=== PATIENT | female | born 1995 | race Caucasian/White ===

== ENCOUNTER → 2019-10-19 | Outpatient (CLI) | payer OTHER, SELFPAY ==
[2014-06-30 08:10] VITALS: BMI 22.6
== END | disposition home or self-care (01) ==
LOC: LABSPEC 16:06
PROVIDERS: Referring Provider Family Medicine; Visit Provider Family Medicine
DX: N39.0 Urinary tract infection, site not specified (principal)
CPT/HCPCS: 87077; 87086; 87088; 87186

== ENCOUNTER → 2020-03-14 16:53 | Outpatient (CLI) | payer OTHER, SELFPAY ==
[2014-06-30 08:10] VITALS: BMI 22.6
== END ==
PROVIDERS: PCP Family Medicine; Referring Provider Family Medicine; Visit Provider Family Medicine
DX: B34.9 Viral infection, unspecified (principal)
CPT/HCPCS: 87633; 87635; U0003

== ENCOUNTER 2021-04-14 16:37 | Emergency (ER) | payer OTHER, SELFPAY ==
[2021-04-14 16:38] VITALS: BP 115/63; PULSE 81; RESP 16; TEMP 36.2; O2SAT 99; BMI 25.8
--- NOTE | 2021-04-14 17:03 | EDS_ITS ---
HPI History of Present Illness Chief Complaint: Abd Pain Informant: patient Onset/Context/Timing Onset: Days (4 days) Context: Gradual Onset Timing: Waxes and wanes Current Severity: Mild Maximum Severity: Moderate Narrative Narrative: Patient presents with pain to her low back and right lower quadrant of her abdomen. She states pain also shoot down her right leg to her knee. It is not necessarily positional. She denies dysuria but has noted slight increased urinary frequency. No history of ovarian cyst. PFSH PFSH Medical History no medical history no medical history Home Medications naproxen [Naprosyn] 500 mg PO BID PRN #20 tab 04/14/21 [Rx Last Taken Unknown] Allergy/AdvReac Type Severity Reaction Status Date / Time No Known Allergies Allergy Verified 04/14/21 16:40 Social History Smoking Status: Never smoker ROS ROS ED Constitutional Constitutional ED: Denies chills or fever(s) Eyes Eyes: Denies change in vision ENT ENT ED: Denies sore throat Cardiovascular Cardiovascular: Denies chest pain Respiratory/Chest Respiratory/Chest: Denies cough or dyspnea Gastrointestinal Gastrointestinal: Reports abdominal pain; Denies diarrhea, nausea or vomiting Genitourinary Genitourinary ED: Denies dysuria Musculoskeletal Musculoskeletal: Reports back pain Integumentary Denies rash Neurologic Neurologic: Denies headache(s), paresthesias or weakness Allergic/Immunologic Allergic/Immunologic ED: Denies urticaria EXAM Physical Exam Const Vital Signs: 04/14/21 16:38 Temperature 97.1 F L Temperature Source Temporal Pulse Rate 81 Respiratory Rate 16 Blood Pressure 115/63 Blood Pressure Mean 80 Pulse Ox 99 Oxygen Delivery Method Room Air Positive well nourished and well developed General Appearance ED: well developed HEENT Reports moist mucous membranes Eyes PERRL and EOMs intact bilaterally Chest Wall inspection of chest normal Resp normal respiratory effort and clear to auscultation bilaterally Cardio regular rate and regular rhythm GI normal to inspection, nondistended, normoactive bowel sounds and non-tender Palpation: soft Back/Spine no CVA tenderness Back/Spine Narrative: No midline thoracic or lumbar tenderness. No significant tenderness in the lumbar paraspinal muscles. Neuro oriented x3 Sensorium / Orientation: alert Psych mental status grossly normal Skin no rashes or lesions noted MDM MDM MDM Narrative Medical decision making narrative: Urinalysis and urine test obtained. Lab Data Attestation: I reviewed the patient's lab results. Labs: Laboratory Results - last 24 hr 04/14/21 17:20 Urine Color Yellow Urine Clarity Clear Urine pH 7.0 Ur Specific [place] 1.015 Urine Protein 15 H Urine Glucose (UA) Normal Urine Ketones Negative Urine Occult Blood 10 H Urine Nitrite Negative Urine Bilirubin Negative Urine Urobilinogen Normal Ur Leukocyte Esterase Negative Urine RBC 0 SEEN Urine WBC 0 SEEN Ur Squamous Epith Cells 0 SEEN Urine Bacteria 0 SEEN Urine Mucus 0 SEEN Urine Test Negative Treatment and Re-Evaluation Comments:: No acute infection noted on urinalysis. Urine test is negative. Patient does not have reproducible abdominal pain. I do not believe she has appendicitis or ovarian cyst/torsion. She does have pain in her right lower back and does have pain that radiates down her leg. I think this is more likely neurovascular/musculoskeletal pain. She will be treated with a course of naproxen, first dose given here. Discharge Plan Triage Chief Complaint: Abd Pain ED Provider: Becky Power Dx/Rx/DC Orders Clinical Impression: Back pain Instructions: ED Back Pain (Acute or Chronic) Prescriptions: New naproxen [Naprosyn] 500 mg tablet 500 mg PO BID PRN (Reason: pain) Qty: 20 RF: 0 Primary Care Provider: Guero Samson Referrals: Guero Samson MD [Primary Care Provider] - 1 Week if not improving Disposition Disposition: Home, Self Care
[2021-04-14 17:26] LABS: Bacteria 0 SEEN /hpf (None Seen); Mucous, Urine 0 SEEN /hpf (<or=2+); Red Blood Cells-Urine 0 SEEN /hpf (0-5); Squamous Epithelial Cells - UA 0 SEEN /hpf (5-10); White Blood Cells 0 SEEN /hpf (0-5)
[2021-04-14 17:37] LABS: Color, Urine Yellow (Yellow); Glucose, Dipstick Normal (Normal); Ketone-Dipstick Negative (Negative); Leukocyte Esterase-Dipstick Negative /ul (Negative); Nitrite-Dipstick Negative (Negative); Occult Blood-Urine 10 /ul (Negative); Protein-Dipstick 15 mg/dl (Negative); Specific Gravity, Urine 1.015 (1.002-1.030); Urine Bilirubin Dipstick Negative (Negative); Urine Clarity Clear (Clear); Urine Urobilinogen Normal (Normal)
[2021-04-14 17:43] LABS: Internal QC Validated? YES +Cl - CLEAR BKGD; Pregnancy, Urine Negative Negative
[2021-04-14] MEDS: Naproxen 500 MG Tablet PO (19:02)
== END 2021-04-14 19:04 | disposition home or self-care (01) ==
PROVIDERS: Emergency Provider Emergency Medicine; PCP Family Medicine
DX: M54.50 Low back pain, unspecified (principal); R10.31 Right lower quadrant pain; R35.0 Frequency of micturition
CPT/HCPCS: 81001; 81025; 99283

== ENCOUNTER 2025-03-19 11:09 | Emergency (ER) | payer OTHER, SELFPAY ==
[2025-03-19 11:10] VITALS: BP 122/89; PULSE 82; RESP 14; TEMP 36.6; O2SAT 98; BMI 28.9
--- NOTE | 2025-03-19 11:20 | US_ITS ---
PROCEDURE: TRANSVAGINAL NON- 03/19/2025 REASON FOR EXAM: VAGINAL BLEEDING TECHNIQUE: Procedure Code: USTVAG Modality: US Procedure: TRANSVAGINAL NON- COMPARISON: None FINDINGS: Measurements: Uterus: 7.7 x 4.6 x 3.3 cm Endometrial Thickness: 7 mm Right ovary measures 3.6 x 2.9 x 2.9 cm no suspicious adnexal mass, normal color flow Left ovary measures 3.0 x 2.3 x 2.5 cm no suspicious adnexal mass, normal color flow US/Transvaginal Non- IMPRESSION: No suspicious sonographic findings Reading Location: [id number]
--- NOTE | 2025-03-19 11:21 | EDS_ITS ---
HPI HPI - Female History of Present Illness Chief Complaint: Vag Bleeding Detail of Chief Complaint: Vaginal bleeding Informant: patient Narrative Narrative: Patient presents with vaginal bleeding that started 65 days ago. Occasionally will stop for day or so. She has not had issues like this before. She denies abdominal pain. She has never been . She does not use control. She describes some mild generalized weakness but no lightheadedness or dizziness. She denies urinary symptoms. PFSH PFS Medical History Non-smoker Home Medications Medication Instructions Recorded Last Taken Type NK 08/05/24 Unknown History Allergy/AdvReac Type Severity Reaction Status Date / Time No Known Allergies Allergy Verified 03/19/25 11:09 Family History (Updated 08/05/24 @ 10:03 by Jazz Mckeon MA) Other Cancer Social History (Updated 08/05/24 @ 10:03 by Jazz Mckeon MA) Smoking Status: Never smoker alcohol intake: never ROS ROS ED Review of Systems ROS Unobtainable: other Constitutional Constitutional ED: Reports lethargy; Denies chills, fever(s), sweats or weight loss Eyes Eyes: Denies blurry vision, change in vision or diplopia ENT ENT ED: Denies rhinorrhea or sore throat Cardiovascular Cardiovascular: Denies chest pain, orthopnea or racing heartbeat Respiratory/Chest Respiratory/Chest: Denies cough, dyspnea, dyspnea on exertion, orthopnea or sputum Gastrointestinal Gastrointestinal: Denies abdominal pain, diarrhea, nausea or vomiting Genitourinary Genitourinary ED: Reports other Details: Vaginal bleeding ; Denies dysuria, hematuria or urinary frequency Musculoskeletal Musculoskeletal: Denies arthralgias, back pain, myalgias or neck pain Integumentary Denies abscess, Abrasions or rash Neurologic Neurologic: Denies headache(s) or weakness Psychiatric Psychiatric: Denies anxiety, depression or suicidal thoughts Endocrine Endocrinology: Denies polydipsia, polyphagia or polyuria Hematologic/Lymphatic Hematologic/Lymphatic: Denies easy bleeding, easy bruising or lymphadenopathy Allergic/Immunologic Allergic/Immunologic ED: Denies mouth swelling, tongue swelling or urticaria EXAM Physical Exam Const Vital Signs: 03/19/25 11:10 03/19/25 11:26 03/19/25 13:09 Temperature 98 F Temperature Source Temporal Pulse Rate 82 80 Pulse Rate [Lying] 78 Pulse Rate [Sitting (for 1 minute prior to obtaining)] 83 Pulse Rate [Standing (for 1 minute prior to obtaining)] 92 Respiratory Rate 14 Blood Pressure 122/89 H 112/80 Blood Pressure [Lying] 120/77 Blood Pressure [Sitting (for 1 minute prior to obtaining)] 118/88 H Blood Pressure [Standing (for 1 minute prior to obtaining)] 113/92 H Blood Pressure Mean 100 90 Blood Pressure Mean [Lying] 91 Blood Pressure Mean [Sitting (for 1 minute prior to obtaining)] 98 Blood Pressure Mean [Standing (for 1 minute prior to obtaining)] 99 Pulse Ox 98 99 Oxygen Delivery Method Room Air Positive well nourished and well developed General Appearance ED: well developed and NAD HEENT Reports TM's clear and moist mucous membranes normocephalic and atraumatic; Negative for trauma or tenderness Tympanic Membrane ED: Yes TM's clear Eyes PERRL and EOMs intact bilaterally General Eye ED: Negative for pale conjunctiva or scleral icterus Neck no lymphadenopathy, supple and no JVD General: Negative for tenderness Chest Wall inspection of chest normal and palpation of chest normal Chest: Negative for tenderness Resp normal respiratory effort and clear to auscultation bilaterally Effort and Inspection: Negative for respiratory distress or pain with movement Auscultation: Negative for rhonchi, wheezes or diminished lung sounds Cardio regular rate, regular rhythm, S1 normal heart sound, S2 normal heart sound and no murmurs Peripheral Pulses: pulses 2+ throughout GI normal to inspection, nondistended, normoactive bowel sounds, soft to palpation, non-tender, non-distended and no masses Back/Spine no CVA tenderness and no thoracic nor lumbar tenderness Extremity normal to inspection General Extremety ED: Negative for edema General Extremity: Negative for edema Neuro oriented x3, CN's II-XII intact bilaterally, no sensory deficits noted and gait normal Sensorium / Orientation: awake, alert, oriented to person, oriented to place and oriented to time Motor Exam: strength 5/5 throughout and strength abnormal Psych mental status grossly normal Skin no rashes or lesions noted and no wounds MDM MDM MDM Narrative Medical decision making narrative: Patient presents with vaginal bleeding x 65 days. Clinically she looks well. IV line established. Type and screen ordered. CBC with differential showed a white count of 8.6 with hemoglobin 13.7 and platelet count 320. hCG was negative. Pelvic ultrasound showed no acute abnormalities. Will discuss case with RESEARCH ADMINISTRATOR on-call. Spoke with Dr. Hayde Miller who recommended just outpatient follow-up and did not think patient acutely needed any type of hormone therapy. Patient comfortable with plan. Lab Data Attestation: I reviewed the patient's lab results. Labs: Laboratory Results - last 24 hr 03/19/25 11:30 WBC 8.6 RBC 4.77 Hgb 13.7 Hct 41.3 MCV 86.6 MCH 28.7 MCHC 33.2 RDW Std Deviation 40.1 RDW Coeff of [place] 12.7 Plt Count 320 MPV 10.0 Immature Gran % (Auto) 0.500 Neut % (Auto) 45.4 L Lymph % (Auto) 44.6 H [place] % (Auto) 7.4 Eos % (Auto) 1.3 Baso % (Auto) 0.8 Absolute Neuts (auto) 3.9 Absolute Lymphs (auto) 3.84 Nucleated RBC % 0 Serum , Qual NEGATIVE Blood Type O POSITIVE Antibody Screen NEGATIVE Radiography Diagnostic Testing: Clinical Impression(s) from Imaging Studies Transvaginal US 03/19/25 11:20 IMPRESSION: No suspicious sonographic findings Reading Location: [facility] Discharge Plan Triage Chief Complaint: Vag Bleeding ED Provider: Matt Palomares Dx/Rx/DC Orders Clinical Impression: Dysfunctional uterine bleeding Instructions: ED Dysfunctional Uterine Bleeding Prescriptions: No Action NK Primary Care Provider: Care Physician,No Primary Referrals: Guero Samson MD [Med Staff - Product Support Representative, Family Practice] Laura Miller MD [Med Staff - Active Staff, Obstetrics-Gynecology (OBGYN)] - 5-7 Days Print Language: [place] Disposition Disposition: Home, Self Care
[2025-03-19 11:26] VITALS: BP 113/92; BP 118/88; BP 120/77; PULSE 78; PULSE 83; PULSE 92
[2025-03-19 11:41] LABS: Hematocrit 41.3 % (37-47); Hemoglobin 13.7 g/dL (12.0-15.0); Immature Granulocytes Count 0.040 X10^3/uL (0.0-0.0); Mean Corp Hgb Conc 33.2 g/dL (32-36); Mean Corpuscular Volume 86.6 fL (81-99); Mean Platelet Vol. 10.0 fl (6.2-12.0); NRBC Flagged by Analyzer 0 % (0-5); Platelet Count 320 K/mm3 (150-450); RBC Distribution Width CV 12.7 % (11.6-14.6); RBC Distribution Width SD 40.1 fl (35.1-43.9); Red Blood Count 4.77 M/mm3 (4.2-5.4); White Blood Count 8.6 K/mm3 (4.4-11.0)
--- OUTSIDE RECORDS SUMMARY | 2025-03-19 11:47 | XMS RPT_ITS | CCD ---
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 Name Role Phone Unavailable Primary Care Provider UnavailMir Heck Attending Unavailable Guero Samson Referring Unavailable Guero Samson Primary Care Unavailable Guero Samson Referring Unavailable Guero Samson Primary Care Unavailable Mir Berg Attending Unavailable Problems Problem Classification Problem Date Documented Da te Episodic/Chronic Menstrual disorders (1 source) Irregular periods; Translations: [Irregular menstruation, unspecified] Chronic Results Test Name Value Interpretation Reference Range [facility] it Office Visit Reporton 2024 Office Visit Report [facility] [address] [place] [address] OFFICE VISIT Date of Service: 08/05/24 MR#: [id number] Acct: [id number] Patient: NIYA PIERCE Rep #: [id number] : 1995 Provider: FLOYD Corley Age/Sex: 29/F Location: [facility] Status: Signed Intake Vital Signs 08/04/24 17:53 Height 5 ft 6 in Intake Visit Reasons: PE NON DOT DRUG SCREEN/[facility] Allergies No Known Allergies Allergy (Verified 08/05/24 10:02) Office Procedures [facility] Billing Sheet Testing Pre-Employment Drug Screen [facility]: Yes Pre-Employment PE: Yes 08/06/24 1740 Date Mir BARRIENTOS Cosigner Signature: Date (if applicable) CC: Normal [facility] Urgent Care Visit Reporton 0 08-05-2024 Urgent Care Visit Report [facility] [address] , [address] [place] [address] OFFICE VISIT Date of Service: 08/05/24 MR#: [id number] Acct: [id number] Name: NIYA PIERCE Rep #: [id number] : 1995 Provider: FLOYD Corley Age/Sex: 29/F Location: [facility] Status: Signed Intake Vital Signs 04/14/21 16:38 08/04/24 17:53 Height 5 ft 6 in 5 ft 6 in Intake Visit Reasons: PE NON DOT PHYSICAL/[facility] Accompanied by: Self Allergies No Known Allergies Allergy (Verified 08/05/24 10:02) Medications ???Medication ???Instructions ???Recorded ???Confirmed ???Type NK 08/05/24 08/05/24 History Nurse's Note: Patient here for a pre-employment physical and Drug screen. PFSH Family History (Updated 08/05/24 @ 10:03 by Jazz Mckeon MA) Other Cancer Social History (Updated 08/05/24 @ 10:03 by Jazz Mckeon MA) Smoking Status: Never smoker alcohol intake: never HPI HPI Details: NIYA PIERCE, is a 29 F who presents to the office today for Office Procedures Physical Exam Coding PE Coding Pre-employment PE: Yes Coding Level of Care Code No Charge Diagnoses Encounter for pre-employment health screening examination Z02.1 Assessment and Plan Assessment and Plan (1) Encounter for pre-employment health screening examination: Status: Acute Medications: Discontinued naproxen (Naprosyn) Discontinued Reason: Pt no longer taking 500 mg PO BID PRN 20 tabs 0RF pain 08/05/24 1128 Date Mir BARRIENTOS Cosigner Signature: Date (if applicable) CC: Normal [facility] B-HCG SerPl-aCncon 2 HCG.beta subunit Qn m[IU]/mL Normal <5.0 [facility] Comment on above: Order Comment: Speci men Type: BLOOD SPECIMEN Ordering Facility: [facility] Address: [address] [place] [address] Result Comment: Nega tive Performed By: #### 2 [id number] #### [facility] CLIA [id number] [address] [place] [address] CNOVon 12-18-2021 CNOV Office Visit (MADONNA) KARINIYA Bryce ([id number]) 1995 F UPA Date Time Provider Department 12/18/21 7:00 AM CHERELLE QURESHI During your visit today, we recorded the following information about you: Blood pressure Weight Last Period 118/70 86.3 kg 11/24/21 Cherelle Qureshi APRN.ERECTOR OPERATOR 12/18/2021 7:27 AM Signed Niya Wu Kari is a 26 year old female who presents for problem visit irregular bleeding. HPI: Menses 11/24/2021 as expected but it lasted 14 days instead of normal 5 days. Flow was usual menstrual flow and stopped abruptly. No bleeding x 5 days then 5 days of light dark brown bleeding but did need to wear. No change in cramping. Is sexually active with negative test 2 weeks ago. Happy if occurs. OB History T0 L0 SAB0 IAB0 Ectopic0 Multiple0 Live Births0 [facility] Service [facility] History LMP: 11/24/2021 (Exact Date), Having periods Age at Menarche: Age at First : Age at Menopause: [facility] History Comments: Sexual Activity: Yes; No partner data on record Contraception: None PAST MEDICAL HISTORY Diagnosis Date NEGATIVE MEDICAL HISTORY PAST SURGICAL HISTORY Procedure Laterality Date ORAL SURGERY PROCEDURE [place] FAMILY HISTORY Problem Relation Age of Onset No Known Problems Mother Gout Father Hypertension Father No Known Problems Sister No Known Problems Sister No Known Problems Maternal Grandfather No Known Problems Paternal Grandmother Social History Tobacco Use Smoking status: Never Smokeless tobacco: Never Vaping Use Vaping Use: Never used Substance Use Topics Alcohol use: Yes Comment: Rarely Drug use: Never No current outpatient medications on file. No current facility-administere d medications for this visit. Allergies As of Date: 12/18/2021 (No Known Allergies) Fully Assessed 12/18/2021 REVIEW OF SYSTEMS Abdomen: No bloating, early satiety, indigestion, or increased flatulence. No abdominal pain, nausea, vomiting, diarrhea, or constipation. Allergies and current medication updated:Yes EXAM: BP 118/70 Wt 190 lb 3.2 oz (86.3kg) LMP 11/24/2021 GENERAL: pleasant, female in no apparent distress CHEST: Normal inspiratory effort ABDOMEN: soft and non-tender NEURO: alert and oriented x3,exam grossly non-focal ASSESSMENT/PLAN: 1. Irregular menstrual cycle - ICD9: 626.4, ICD10: N92.6 - discussed occasional irregular menses and causes. - HCG QUANTITATIVE - PNVFA Follow-up if irregular menses continues and as needed. Cherelle Qureshi APRN.CNP I spent a total of 20 minutes on the date of the service which included preparing to see the patient, [id number] patient care, completing clinical documentation, obtaining and/or reviewing separately obtained history, performing a medically appropriate examination, counseling and educating the patient/family/careg iver, and ordering medications, tests, or procedures. Cherelle Qureshi APRN.CNP 12/18/2021 7:19 AM Signed vitamin with 0.4 folic acid Referring Provider: SELF [200] Allergies As of Date: 12/18/2021 (No Known Allergies) Date Reviewed: 12/18/2021 Reviewed by: Cherelle Qureshi APRN.CNP - Fully Assessed Reason for Visit: Discussion [813] Cmt: Irregular bleeding Primary Visit Diagnosis:Irregular menstrual cycle [N92.6] Order(s):HCG QUANTITATIVE [SQHCGQT] Order #: [id number] FUTURE Problem List As Of Date: 12/18/2021 (None) Other instructions from your clinician: vitamin with 0.4 folic acid Encounter Status:Closed by CHERELLE QURESHI on 12/18/21 Normal [facility] Vital Signs Date Time Vital Sign Value Performing Clinician Abdirizak arita 12-18-2021 06:58-0400 Body weight 86.27 kg Cehrelle Qureshi APRN.JAIME Work Phone: [facility] 12-18-2021 06:58-0400 Diastolic blood pressure 70 mm[Hg] Cherelle Qureshi APRN.JAIME Work Phone: [facility] 12-18-2021 06:58-0400 Systolic blood pressure 118 mm[Hg] Cherelle Qureshi APRN.JAIME Work Phone: [facility] Encounters Encounter Date Encounter Type Care Provider Facility Start: 08-05-2024 End: 08-05-2024 ambulatory Mir BARRIENTOS Facility:[facility] Start: 12-18-2021 End: 12-18-2021 Patient encounter procedure Cherelle Qureshi APRN.JAIME Work Phone: OB/Gynecology Comment on above: Irregular menstrual cycle (Primary Dx) Plan of Treatment Date Care Activity Detail Author Start: 08-22-2023 PAP TESTING PAP TESTING [facility] Start: 01-03-2022 Influenza vaccination INFLUENZA (#1) [facility] Start: 12-18-2021 End: 02-17-2022 Choriogonadotropin.beta subunit [Units/volume] in Serum or Plasma [facility] Work Phone: Comment on above: Expected: 12/18/2021 , Expires: 02/17/2022 Start: 2015 Urine microalbumin profile DTAP,TDAP,TD (1 - Tdap) [facility] Start: 2014 HEPATITIS C SCREENING HEPATITIS C SC YARED [facility] Start: 2014 HIV SCREENING HIV SCREENING [facility] Start: 2010 PEDS TO ADULT TRANSI TION ANNUAL ASSESSMENT PEDS TO ADULT TRANSITION ANNUAL ASSESSMENT [facility] Start: 2008 Adult depression screening assessment DEPRESSION SCREENING [facility] Start: 2008 PEDS TO ADULT TRANSI TION INITIAL DISCUSSION PEDS TO ADULT TRANSITION INITIAL DISCUSSION [facility] Start: 2007 HPV VACCINE (1 - 2-d ose series) HPV VACCINE (1 - 2-dose series) [facility] Start: 1996 COVID-19 VACCINE (#1) COVID-19 VACCI NE (#1) [facility] Start: 1996 HEPATITIS B (1 of 3 - 3-dose series) HEPATITIS B (1 of 3 - 3-dose series) [facility] Payers Date Payer Category Payer Self-pay 2021 Private Health Insurance [employer] POS [id number] 2021-Present [phone] [address] [address] [place] [address] POS [id number] Unknown [id number] Unknown [id number] Social History Date Type Detail Facility Start: 12-18-2021 [facility] Work Phone: Start: 12-18-2021 Tobacco use and exposure Smokeless tobacco non-user [facility] Work Phone: Start: 12-18-2021 Alcohol intake Current drinke r of alcohol (finding) [facility] Start: 08-21-2020 History SDOH Alcohol Comment Rarely [facility] Start: 1995 Sex Assigned At Not on file [facility] Start: 12-08-2021 End: 12-18-2021 Exposure to SARS-CoV-2 (event) Not sure [facility] Work Phone: Progress note 12-18-2021 Note Date & Type Note Facility 12-18-2021 Note HNO ID: [id number] Author: Cherelle Qureshi APRN.ERECTOR OPERATOR Service: ? Author Type: Nurse Practitioner Type: Progress Notes Filed: 12/18/2021 7:27 AM Note Text: Niya Pierce is a 26 year old female who presents for problem visit irregular bleeding. HPI: Menses 11/24/2021 as expected but it lasted 14 days instead of normal 5 days. Flow was usual menstrual flow and stopped abruptly. No bleeding x 5 days then 5 days of light dark brown bleeding but did need to wear. No change in cramping. Is sexually active with negative test 2 weeks ago. Happy if occurs. OB History T0 L0 SAB0 IAB0 Ectopic0 Multiple0 Live Births0 Vp Cardiovascular Service Line History LMP: 11/24/2021 (Exact Date), Having periods Age at Menarche: Age at First : Age at Menopause: [facility] Cardiovascular Service Line History Comments: Sexual Activity: Yes; No partner data on record Contraception: None PAST MEDICAL HISTORY Diagnosis Date NEGATIVE MEDICAL HISTORY PAST SURGICAL HISTORY Procedure Laterality Date ORAL SURGERY PROCEDURE [place] FAMILY HISTORY Problem Relation Age of Onset No Known Problems Mother Gout Father Hypertension Father No Known Problems Sister No Known Problems Sister No Known Problems Maternal Grandfather No Known Problems Paternal Grandmother Social History Tobacco Use Smoking status: Never Smokeless tobacco: Never Vaping Use Vaping Use: Never used Substance Use Topics Alcohol use: Yes Comment: Rarely Drug use: Never No current outpatient medications on file. No current facility-administered medications for this visit. Allergies As of Date: 12/18/2021 (No Known Allergies) Fully Assessed 12/18/2021 REVIEW OF SYSTEMS Abdomen: No bloating, early satiety, indigestion, or increased flatulence. No abdominal pain, nausea, vomiting, diarrhea, or constipation. Allergies and current medication updated:Yes EXAM: BP 118/70 Wt 190 lb 3.2 oz (86.3kg) LMP 11/24/2021 GENERAL: pleasant, female in no apparent distress CHEST: Normal inspiratory effort ABDOMEN: soft and non-tender NEURO: alert and oriented x3,exam grossly non-focal ASSESSMENT/PLAN: 1. Irregular menstrual cycle - ICD9: 626.4, ICD10: N92.6 - discussed occasional irregular menses and causes. - HCG QUANTITATIVE - PNVFA Follow-up if irregular menses continues and as needed. Cherelle Qureshi APRN.ERECTOR OPERATOR I spent a total of 20 minutes on the date of the service which included preparing to see the patient, [id number] patient care, completing clinical documentation, obtaining and/or reviewing separately obtained history, performing a medically appropriate examination, counseling and educating the patient/family/caregiver, and ordering medications, tests, or procedures. [facility] 12-18-2021 Patient Instructions Note Date & Type Note Facility 12-18-2021 Instructions Cherelle Qureshi APRN.JAIME - 12/18/2021 7:19 AM EDT vitamin with 0.4 folic acid documented in this encounter [facility] History of Present illness Narrative 12-18-2021 Cherelle Qureshi APRN.JAIME - 12/18/2021 6:58 AM EDT Note Date & Type Note Facility 12-18-2021 History of Presen t illness Narrative Niya Pierce is a 26 year old female who presents for problem visit irregular bleeding. HPI: Menses 11/24/2021 as expected but it lasted 14 days instead of normal 5 days. Flow was usual menstrual flow and stopped abruptly. No bleeding x 5 days then 5 days of light dark brown bleeding but did need to wear. No change in cramping. Is sexually active with negative test 2 weeks ago. Happy if occurs. OB History T0 L0 SAB0 IAB0 Ectopic0 Multiple0 Live Births0 Vp Cardiovascular Service Line History LMP: 11/24/2021 (Exact Date), Having periods Age at Menarche: Age at First : Age at Menopause: Vp Cardiovascular Service Line History Comments: Sexual Activity: Yes; No partner data on record Contraception: None PAST MEDICAL HISTORY Diagnosis Date NEGATIVE MEDICAL HISTORY PAST SURGICAL HISTORY Procedure Laterality Date ORAL SURGERY PROCEDURE [place] FAMILY HISTORY Problem Relation Age of Onset No Known Problems Mother Gout Father Hypertension Father No Known Problems Sister No Known Problems Sister No Known Problems Maternal Grandfather No Known Problems Paternal Grandmother Social History Tobacco Use Smoking status: Never Smokeless tobacco: Never Vaping Use Vaping Use: Never used Substance Use Topics Alcohol use: Yes Comment: Rarely Drug use: Never No current outpatient medications on file. No current facility-administered medications for this visit. Allergies As of Date: 12/18/2021 (No Known Allergies) Fully Assessed 12/18/2021 REVIEW OF SYSTEMS Abdomen: No bloating, early satiety, indigestion, or increased flatulence. No abdominal pain, nausea, vomiting, diarrhea, or constipation. Allergies and current medication updated:Yes EXAM: BP 118/70 Wt 190 lb 3.2 oz (86.3kg) LMP 11/24/2021 GENERAL: pleasant, female in no apparent distress CHEST: Normal inspiratory effort ABDOMEN: soft and non-tender NEURO: alert and oriented x3,exam grossly non-focal ASSESSMENT/PLAN: 1. Irregular menstrual cycle - ICD9: 626.4, ICD10: N92.6 - discussed occasional irregular menses and causes. - HCG QUANTITATIVE - PNVFA Follow-up if irregular menses continues and as needed. Cherelle Qureshi APRN.CNP I spent a total of 20 minutes on the date of the service which included preparing to see the patient, [id number] patient care, completing clinical documentation, obtaining and/or reviewing separately obtained history, performing a medically appropriate examination, counseling and educating the patient/family/caregiver, and ordering medications, tests, or procedures. documented in this encounter [facility] Evaluation note Note Date & Type Note Facility Evaluation note Diagnosis Irregular menstrual cycle- Primary documented in this encounter [facility] Summary Purpose Family History No Family History Records FoundNo Family History Records Found Advance Directives No Advanced Directives Records FoundNo Advanced Directives Records Found Additional Source Comments Source Comments (unrecognize d section and content) In the event this informatio n is protected by the Federal Confidentiality of Alcohol and Drug Abuse Patient Records regulations: The Federal rules restrict any use of the information to criminally investigate or prosecute any alcohol or drug abuse patient.[facility] Reason for Visit (unrecogniz ed section and content) Reason Comments Discussion Irregular bleeding Specialty Diagnoses / Procedures Referred By Laura t Referred To Contact Gynecology / RN INTERNSHIP Diagnoses irregular bleeding Procedures OFFICE/OUTPATIENT ESTABLISHED [facility] 40-54 MIN EST WHI PATIENT Self, Cherelle Reyes, CAFETERIA WORKER.ERECTOR OPERATOR [address] [place] [address] Referral ID Status Reason Start Date Expiration Date V isits Requested Visits Authorized [id number] Authorized 12/14/2021 05/04/2022 99 99 INFORMATION SOURCE (unrecogn ized section and content) DATE CREATED AUTHOR 12/25/2021 [facility] DATE CREATED AUTHOR AUTHOR'S ORGANIZ ATION 08/08/2024 [facility] FOR RECORDS PERTAINING TO PATIENTS WHO ARE OR HAVE BEEN ENROLLED IN A CHEMICAL DEPENDENCY/SUBSTANCEABUSE PROGRAM, SOME INFORMATION MAY BE OMITTED. This clinical summary was aggregated from multiple sources. Caution should be exercised in using it in the provision of clinical care. This summary normalizes information from multiple sources, and as a consequence, information in this document may materially change the coding, format and clinical context of patient data. In addition, data may be omitted in some cases. CLINICAL DECISIONS SHOULD BE BASED ON THE PRIMARY CLINICAL RECORDS. [employer] provides no warranty or guarantee of the accuracy or completeness of information in this document.
[2025-03-19 11:50] LABS: Internal QC Validated? YES +Cl - CLEAR BKGD; Pregnancy, Serum, hCG Quali. NEGATIVE Negative; Record Kit Lot#, Serum Preg. 980607
[2025-03-19 13:09] VITALS: BP 112/80; PULSE 80; O2SAT 99
[2025-03-19 14:47] VITALS: BP 112/65; PULSE 78; RESP 12; TEMP 36.6; O2SAT 99
== END 2025-03-19 14:48 | disposition home or self-care (01) ==
PROVIDERS: Emergency Provider Emergency Medicine; Visit Provider Emergency Medicine
DX: N93.8 Other specified abnormal uterine and vaginal bleeding (principal)
CPT/HCPCS: 76830; 84703; 85025; 86850; 86900; 86901; 99284; A4216